=== PATIENT | female | born 1990 | race Caucasian/White ===

== ENCOUNTER 2021-07-08 08:26 | Emergency (ER) | payer MEDICAID ==
--- NOTE | 2021-07-08 09:24 | EDM.PDOC ---
ED HPI GENERAL MEDICAL PROBLEM - General Stated Complaint: QUESTION KIDNEY INFECTION Time Seen by Provider: 07/08/21 09:00 Source of Information: Reports: Patient, RN Notes Reviewed History Limitations: Reports: No Limitations - History of Present Illness INITIAL COMMENTS - FREE TEXT/NARRATIVE: This patient presents to the emergency department for evaluation of back pain. She states that she is 16 weeks and has had back pain for the last 4 days and wondered whether or not she had a urinary tract infection. She also has a history of Lyme disease and is currently being treated with antibiotics but does not recall the medication that she is on. She does have a high risk with 6 para 1 and 5 losses. She states since she has had low back pain she has had a significant decrease in movement as well. She denies fever. She denies nausea, vomiting, other symptoms or concerns. - Related Data Allergies Allergy/AdvReac Type Severity Reaction Status Date / Time amoxicillin Allergy Nausea and Verified 07/08/21 08:43 Vomiting Home Meds: Home Meds cefUROXime axetiL [Cefuroxime] 500 mg PO DAILY 07/08/21 [History] ED ROS GENERAL - Review of Systems Review Of Systems: Comprehensive ROS is negative, except as noted in HPI. ED EXAM - Physical Exam Exam: See Below Exam Limited By: No Limitations General Appearance: Alert, No Apparent Distress Eye Exam: Bilateral Eye: PERRL Ears: Normal External Exam Nose: Normal Inspection Head: Atraumatic, Normocephalic Neck: Normal Inspection, Non-Tender, Full Range of Motion Respiratory/Chest: No Respiratory Distress, No Accessory Muscle Use Back Exam: Normal Inspection, Full Range of Motion, Other (Bilateral paraspinal tenderness L3-5.). No: CVA Tenderness (R), CVA Tenderness (L) ( No CVA tenderness bilaterally) Neurological: Alert, Oriented Psychiatric: Normal Affect Course - Orders/Labs/Meds Orders: Active Orders 24 hr Category Date Time Status CULTURE URINE [RM] Stat Lab 07/08/21 08:50 Received UA W/MICROSCOPIC [URIN] Stat Lab 07/08/21 08:50 Results Labs: Laboratory Tests 07/08/21 Range/Units 08:50 Urine Color Yellow Urine Appearance Clear (CLEAR) Urine pH 6.0 (5.0-8.0) Ur Specific Ruffin >= 1.030 (1.003-1.030) Urine Protein Negative (NEGATIVE) mg/dL Urine Glucose (UA) Negative (NEGATIVE) mg/dL Urine Ketones Negative (NEGATIVE) mg/dL Urine Occult Blood Negative (NEGATIVE) Urine Nitrite Negative (NEGATIVE) Urine Bilirubin Negative (NEGATIVE) Urine Urobilinogen 0.2 (0.2-1.0) E.U./dL Ur Leukocyte Esterase Small H (NEGATIVE) - Re-Assessments/Exams Free Text/Narrative Re-Assessment/Exam: 07/08/21 09:28 This patient presents to the emergency department for evaluation of back pain. Her urine was significant for just leukocyte esterase and a small amount, it was otherwise negative. I contacted her provider in [place], Dr. Carrillo and learned that he was out of the office this week. I spoke with the triage nurse for the OB clinic there who suggested that the patient be sent to them for an ultrasound. She stated she would contact the patient at home to tell her when to come for an ultrasound. I talked with the patient about this plan and she was agreeable. She will be discharged to home with instructions to rest, drink extra fluids and await their call. Departure - Departure Time of Disposition: 09:30 Disposition: Home, Self-Care 01 Condition: Fair Clinical Impression: Back pain - Discharge Information *PRESCRIPTION DRUG MONITORING PROGRAM REVIEWED*: Not Applicable *COPY OF PRESCRIPTION DRUG MONITORING REPORT IN PATIENT [place]: Not Applicable Instructions: Acute Back Pain, Adult Referrals: Christiano Carrillo [Primary Care Provider] - Additional Instructions: Go home and rest; drink plenty of fluids. The nurse from Dr. Carrillo's office with call you about getting an ultrasound done today. - My Orders Last 24 Hours: My Active Orders 07/08/21 08:50 CULTURE URINE [RM] Stat UA W/MICROSCOPIC [URIN] Stat - Assessment/Plan Last 24 Hours: My Active Orders 07/08/21 08:50 CULTURE URINE [RM] Stat UA W/MICROSCOPIC [URIN] Stat
== END 2021-07-08 11:00 | disposition home or self-care (01) ==
LOC: LB.ED 08:26
DX: O99.891 Other specified diseases and conditions complicating pregnancy (principal); M54.50 Low back pain, unspecified; Z88.0 Allergy status to penicillin; Z3A.16 16 weeks gestation of pregnancy
CPT/HCPCS: 81001; 87086; 99283

== ENCOUNTER 2023-04-06 10:50 | Emergency (ER) | payer MEDICAID ==
[2023-04-06] MEDS ORDERED: Lidocaine 1% 5 ML VIAL INJECT ONE (11:43)
== END 2023-04-06 11:25 | disposition home or self-care (01) ==
LOC: LB.ED 10:50
DX: S60.454A Superficial foreign body of right ring finger, initial encounter (principal); E66.9 Obesity, unspecified; Z88.1 Allergy status to other antibiotic agents; Z68.32 Body mass index [BMI] 32.0-32.9, adult; W45.8XXA Other foreign body or object entering through skin, initial encounter
CPT/HCPCS: 64450; 99282; 99283